=== PATIENT | female | born 1950 | race Caucasian/White ===

== ENCOUNTER 2016-09-11 17:13 | Outpatient (CLI) | payer MEDICARE, OTHER ==
--- NOTE | 2016-09-11 18:08 | Diagnostic Imaging Report ---
[id number] [facility].[address] [id number] Report Submission Date: Sep 11, 2016 6:04:25 PM [employer] Patient Study Name: RUMA BRIDGES Date: Sep 11, 2016 5:21:39 PM [employer] Modality Type: CR Gender: F Description: SPINE : 46 Institution: Physician: JAVAN OZUNA - OP Thoracic spine, 3 views History: Chronic pain for several months without known injury. Findings: The vertebral height and alignment are normal throughout the thoracic spine. There is minimal intervertebral disc space narrowing in the lower thoracic spine with mild anterior spurring. There is slight leftward curvature in the upper thoracic spine noted. The posterior ribs are normal. Impression: 1. No acute osseous abnormality. 2. Minimal spondylosis in the lower thoracic spine with slight leftward curvature in the upper thoracic spine Electronically signed on Sep 11, 2016 6:04:25 PM [employer] by: Twan SALAZAR
== END 2016-09-11 17:18 | disposition home or self-care (01) ==
LOC: RAD 17:13
PROVIDERS: ATTEND Family Medicine
DX: M54.6 Pain in thoracic spine (principal)
CPT/HCPCS: 72072

== ENCOUNTER 2018-01-25 16:03 | Outpatient (CLI) | payer MEDICARE, OTHER ==
[2017-07-07 11:51] VITALS: BP 154/87
== END 2018-01-25 16:08 ==
LOC: LABRHC 16:03
PROVIDERS: ATTEND Family Medicine
DX: N39.0 Urinary tract infection, site not specified (principal)
CPT/HCPCS: 87086

== ENCOUNTER 2018-02-22 16:01 | Outpatient (CLI) | payer MEDICARE, OTHER ==
[2017-07-07 11:51] VITALS: BP 154/87
== END 2018-02-22 16:03 ==
LOC: LAB 16:01
PROVIDERS: ATTEND Family Medicine
DX: M13.0 Polyarthritis, unspecified (principal)
CPT/HCPCS: 36415; 85651; 86038; 86431